=== PATIENT | male | born 1960 | race Caucasian/White ===

== ENCOUNTER → 2018-03-23 | Outpatient (CLI) | payer BC ==
[~2018-03-23] MED LIST: ASPI-715 PO; CEPH500T7 PO; GLUCOSAMINE PO; HYDR-385 PO; HYDR-4309 PO; LORA-629 PO; MONT10TA PO; MULT-1335 PO
--- NOTE | 2018-03-23 11:56 | RADIOLOGY IMAGING REPORT ---
[place]AC[place] [facility] [place] NAME: Adi Aviles : 1960 MR: [id number] V: [id number] EXAM DATE: ORDERING PHYSICIAN: MORELIA MADRIGAL TECHNOLOGIST: [place] [facility] [place] Patient: Adi Aviles : 1960 Visit/Account:[id number] Date of Sevice: 03/23/2018 CAROTID HISTORY: Right carotid bruit COMPARISON: None. FINDINGS: Grayscale, duplex and color Doppler interrogation of the extracranial carotid and vertebral arteries was performed bilateral. On the right, peak systolic velocities within the common and internal carotid arteries are 89 and 63 cm/sec respectively. . Antegrade flow within the common, internal and external carotid arteries as w ell as vertebral artery. ICA/CCA ratio 0.71. On the left, peak systolic velocities within the common and internal carotid arteries are 99 and 59 c m/sec respectively. There is a small amount of plaque at the left carotid bulb and proximal left int ernal carotid artery. Antegrade flow within the common, internal and external carotid arteries as we ll as vertebral artery. ICA/CCA ratio 0.8. IMPRESSION: Small amount of plaque left carotid bulb and left internal carotid artery although no hemodynamically significant lesions identified by velocity criteria Velocity criteria are extrapolated from diameter data as defined by the Society of Radiologists in Ul trasound Consensus Conference Radiology 2003; 229;340-346 Report Dictated By: Ana Ramires MD at 03/23/2018 11:50 AM Report E-Signed By: Ana Ramires MD at 03/23/2018 11:52 AM WSN:[email or web address]
== END ==
LOC: US 01:58
PROVIDERS: ATTEND Family Medicine
DX: I65.22 Occlusion and stenosis of left carotid artery (principal)
CPT/HCPCS: 93880

== ENCOUNTER → 2018-03-31 | Outpatient (CLI) | payer BC ==
[~2018-03-31] MED LIST changes: +GLUC100026 PO
== END ==
LOC: LAB 16:11
PROVIDERS: ATTEND Surgery
DX: L72.0 Epidermal cyst (principal)
CPT/HCPCS: 88305